=== PATIENT | female | born 1980 | race Caucasian/White ===

== ENCOUNTER 2021-04-03 17:03 | Outpatient (CLI) | payer OTHER, SELFPAY ==
[2021-04-03 15:26] LABS: FREE T4 0.93 ng/dL (0.76-1.46)
== END 2021-04-03 17:04 | disposition home or self-care (01) ==
LOC: LBO 17:17
PROVIDERS: Visit Provider Nurse Practitioner Family
DX: E03.9 Hypothyroidism, unspecified (principal)
CPT/HCPCS: 36415; 84439; 84443

== ENCOUNTER 2022-04-08 17:07 | Outpatient (REF) | payer SELFPAY ==
[2022-04-08 20:05] LABS: ALT 21 U/L (14-59); AST 22 U/L (15-37); Albumin 3.7 g/dL (3.4-5.0); Alkaline Phosphatase 54 U/L (46-116); Anion Gap 8.1 mmol/L (3-11); BUN 17 mg/dL (7-18); Bilirubin, Total 0.3 mg/dL (0.2-1.0); CO2 26.9 mmol/L (21.0-32.0); CREATININE 0.8 mg/dL (0.55-1.02); Calcium 8.8 mg/dL (8.5-10.1); Chloride 103 mmol/L (98-107); Estimated GFR 96.06 (mL/min/1.73m2); FREE T4 1.02 ng/dL (0.76-1.46); Glucose 94 mg/dL (74-106); Potassium 3.9 mmol/L (3.5-5.1); Sodium 138 mmol/L (136-145); Total Protein 7.5 g/dL (6.4-8.2)
== END 2022-04-08 17:08 | disposition home or self-care (01) ==
LOC: NCHCN 17:07
PROVIDERS: Visit Provider Nurse Practitioner Family
DX: R63.5 Abnormal weight gain (principal); E03.9 Hypothyroidism, unspecified; F41.8 Other specified anxiety disorders
CPT/HCPCS: 80053; 84439; 84443

== ENCOUNTER 2022-08-03 15:27 | Outpatient (REF) | payer SELFPAY ==
[2022-08-03 19:23] LABS: C-Reactive Protein 0.41 mg/dL (0.0-0.3)
[2022-08-04 17:27] LABS: Rheumatoid Factor <8.6 IU/mL (<12.0)
[2022-08-05 13:58] LABS: ANA Interpretation Positive (Negative)
== END 2022-08-03 15:28 | disposition home or self-care (01) ==
LOC: NCHCN 15:27
PROVIDERS: PCP Nurse Practitioner Family; Visit Provider Nurse Practitioner Family
DX: M35.7 Hypermobility syndrome (principal); M25.59 Pain in other specified joint
CPT/HCPCS: 86038; 86140; 86431

== ENCOUNTER 2025-05-25 18:54 | Emergency (ER) | payer OTHER, SELFPAY ==
[2025-05-25 18:57] VITALS: BP 127/86; PULSE 69; RESP 14; TEMP 36.8; O2SAT 100
[2025-05-25 19:04] VITALS: BP 127/86; PULSE 67; RESP 13; O2SAT 100
--- NOTE | 2025-05-25 19:12 | W.ED.GENAD ---
Discharge Plan Disposition Patient Disposition: Home Condition: Stable Discharge Details Clinical Impression: Knee pain, right, Locking of right knee Primary Care Provider: Hortensia Bridges ED Provider: Richard Flores Home Meds and New Rx's Prescriptions: Continued Vivitrol 380 mg suspension,extended rel recon 380 mg IM .28 days hydroxyzine HCl 25 mg tablet 25 mg PO Q8H PRN Patient Comments: TAKE ONE TABLET BY MOUTH AT BEDTIME. sertraline 100 mg tablet 100 mg PO DAILY Patient Comments: TAKE 2 TABLETS BY MOUTH EVERY DAY Discharge Instructions Additional Instructions: Follow-up with your primary care provider if pain continues as you will likely need an MRI if the pain is not improving. You can take 1000 mg of acetaminophen and 600 mg of ibuprofen every 6 hours as needed. If you feel more ill or have new symptoms such as high fevers return to the emergency department for reevaluation. Stand Alone Forms: Portal Information HPI General Mode of arrival: EMS. Date/Time Provider Initiated Documentation: 05/25/25 19:06. Limitations to Documentation: no limitations. Information obtained by: patient. History of Present Illness 44 year old F presents to the emergency department with the chief complaint of right knee pain, described as moderate, Quality is described as aching, and it has been constant. No relieving factors improve symptom(s), No exacerbating factors reported . Patient notes no other symptoms.. Related Data Home Medications Medication Instructions Recorded Confirmed hydroxyzine HCl 25 mg tablet 25 mg PO Q8H PRN 05/25/25 05/25/25 naltrexone microspheres 380 mg 380 mg IM .28 days 05/25/25 05/25/25 intramuscular suspension,extended release (Vivitrol) sertraline 100 mg tablet 100 mg PO DAILY 05/25/25 05/25/25 Allergies Allergy/AdvReac Type Severity Reaction Status Date / Time No Known Allergies Allergy Unverified 05/25/25 19:05 General Stated Complaint: Orthopedic LUIZ: 4 Review of Systems All systems reviewed & are unremarkable except as noted in HPI and below Constitutional Constitutional: Denies chills, Denies fever(s) and Denies weakness ENT Ears, Nose, Mouth, and Throat: Denies change in voice Cardiovascular Cardiovascular: Denies chest pain and Denies dyspnea Respiratory Respiratory: Denies cough and Denies dyspnea Gastrointestinal Gastrointestinal: Denies abdominal pain, Denies nausea and Denies vomiting Musculoskeletal Musculoskeletal: Reports arthralgias Neurologic Neurologic: Denies weakness Exam Const General: no acute distress Orientation: alert [facility] Head: normal to inspection Ears: external ears normal General nose exam: external nose normal Mouth: moist mucous membranes Eyes General: appearance normal, both eyes and all related structures Neck Neck: normal visual inspection Resp Effort & Inspection: normal respiratory effort and able to speak in complete sentences Cardio Rate: regular rate Skin General skin exam: no rashes or lesions noted Neuro General: patient alert and patient oriented x3 Extrem General: abnormal ROM and capillary refill normal Psych Mental Status: mental status grossly normal Course Vital Signs Vital signs: Vital Signs Temperature 36.8 C 05/25/25 18:57 Pulse 69 05/25/25 18:57 Respiratory Rate 14 05/25/25 18:57 Blood Pressure 127/86 05/25/25 18:57 Pulse Oximetry 100 05/25/25 18:57 Temperature 36.8 C 05/25/25 18:57 Temperature Source Oral 05/25/25 18:57 Pulse 69 05/25/25 18:57 Respiratory Rate 14 05/25/25 18:57 Blood Pressure 127/86 05/25/25 18:57 Blood Pressure Position Sitting 05/25/25 18:57 Pulse Oximetry 100 05/25/25 18:57 Oxygen Delivery Method Room Air 05/25/25 18:57 Oxygen Flow Rate 0 05/25/25 18:57 Pain Level 10 05/25/25 19:08 Medical Decision Making 44-year-old female who 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 She says that she has had knee dislocations in the past. Denies any trauma, no fevers or chills. She is unable to move the knee at all without causing significant pain. There is no visible or palpable deformities of the knee. She has no tenderness or pain elsewhere in the leg. She has intact distal sensation and pulses. There is no warmth or erythema of the knee. I suspect this is possibly a meniscus versus ligamentous cause for her pain, will obtain x-rays to evaluate for fracture/dislocation and reassess. She is no findings on exam or history to suggest septic joint. X-ray negative on my read, patient still unable to move the knee due to pain. She gave verbal consent to inject lidocaine into the knee to see if this helps with her pain and will allow her to start moving the knee No significant change to lidocaine, she states that this has happened in the past and usually muscle relaxer helps. Will trial diazepam. Patient now moving her leg well. She is able to lift her leg straight up off the bed and maintains a straight leg so I doubt quadriceps tendon rupture. I suspect meniscus versus ligamentous injury. Will provide a knee immobilizer and also have her follow-up with PCP for an mri if pain continues, return precautions given. Differential Diagnosis Differential Diagnosis: muscle spasm, strain, dislocation PFSH All Active Problems (Updated 05/25/25 @ 20:40 by Richard Flores MD) Locking of right knee (Acute) Knee pain, right (Acute) Encounter for screening laboratory testing for COVID-19 virus (Acute) No-show for appointment (Acute) Encounter for screening for other viral diseases (Acute) Social History Smoking/Tobacco Use Status: Never Smoking risk assessment performed?: Yes Alcohol Intake: former Substance use type: does not use
[2025-05-25] MEDS: Ketorolac 15 MG/ML VIAL IVP ×2 (19:18→20:13)
--- NOTE | 2025-05-25 19:33 | DI.RAD_ITS ---
Exam(s) XR KNEE RT 2V AP,LAT EXAM: XR KNEE RT 2V AP,LAT CLINICAL HISTORY: pain, limited rom. TECHNIQUE: 2D digital imaging was performed of the right knee. Two views obtained. AP and lateral views were obtained. COMPARISON: No exams were available for comparison FINDINGS: The examination is limited by patient positioning and body habitus. The distal femur and tibial plateau are not well visualized on the AP view. BONES: No acute fracture is present. No bony destructive lesion is seen. JOINTS: Mild degenerative changes are seen in the knee. No joint effusion is seen. SOFT TISSUE: Normal. IMPRESSION: 1. Examination limited by patient body habitus. The distal femur and tibial plateau cannot be completely evaluated based on these images. 2. Within the limits of the examination, no acute fracture or dislocation is identified. 3. If there is continued clinical concern, a complete knee series should be obtained. DATA REPOSITORY: RADIATION DOSE DELIVERED:
[2025-05-25] MEDS: diazePAM 10 MG/2 ML SYR 5 MG IVP (20:12)
[2025-05-25] MEDS: Lidocaine 2% Pres-Free W/EPI 1/200,000 20 ML VIAL (20:21)
[2025-05-25 20:30] VITALS: PULSE 66; PULSE 67; RESP 14; O2SAT 96
== END 2025-05-25 21:16 | disposition home or self-care (01) ==
PROVIDERS: Emergency Provider Emergency Medicine; PCP Nurse Practitioner Family
DX: M25.561 Pain in right knee (principal)
CPT/HCPCS: 99283; 99284; 96374; 96375; 96376; 73560; J1885; J2004; J3360

== ENCOUNTER → 2025-07-17 14:21 | Outpatient (CLI) | payer OTHER, SELFPAY ==
--- NOTE | 2025-07-17 | DI.MRI_ITS ---
Exam(s) MR LOWER JOINT RT WO EXAM: MR LOWER JOINT RT WO CLINICAL HISTORY: M23.91 Unspecified internal derangement of RT knee TECHNIQUE: Multiplanar multisequence MRI of the knee was performed. 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 Is no debris nor loose intra-articular bodies within this Castillo cyst and this septated Castillo's cyst does not appear ruptured. MARROW:There is no evidence of fracture, bone contusion, nor osteochondral defects.. There are no significant osseous lesions. PATELLOFEMORAL COMPARTMENT: The quadriceps tendon is intact. The patellar ligament is intact. There is an element of lateral positioning of the patella, with approximately 1 cm lateral shift, similar to the opposite side. There is no prominent thinning of the retropatellar cartilage nor osteochondral defects at this level nor intraosseous edema within the patella. There is no intraosseous signal which would suggest recent patellar dislocation and there are no patellar retinacular tears nor signal abnormality within the vastus medialis muscle. CRUCIATE LIGAMENTS: The anterior cruciate ligament is intact.The posterior cruciate ligament is intact. MEDIAL COMPARTMENT/MEDIAL MENISCUS: There are no tears of the medial meniscus evident.. There is, however, moderate thinning of the articular cartilage over the main weight-bearing surface of the medial femoral condyle and small marginal osteophytes off the inner and outer aspects of the medial condyle. There is no subjacent edema in the medial tibial plateau. MEDIAL COLLATERAL LIGAMENT: Intact LATERAL COMPARTMENT/LATERAL MENISCUS: There is significant attenuation-chronic tearing of the anterior horn and part of the body of the lateral meniscus versus previous instrumentation at this level or combination of both. The posterior horn of the lateral meniscus appears intact.There is also significant articular cartilage thinning over the main weight-bearing surface of the lateral condyle. There is no obvious subarticular edema in the lateral compartment within the lateral condyle nor within the subjacent lateral tibial plateau. ILIOTIBIAL BAND: Intact LATERAL COLLATERAL LIGAMENT COMPLEX: The fibular collateral ligament is intact. The biceps femoris tendon is intact.Popliteus muscle and tendon are intact. IMPRESSION: 1. There is prominent attenuation and tearing of the anterior horn and part of the body of the lateral meniscus with significant chondromalacia/articular cartilage thinning over the main weight-bearing surface of the lateral femoral condyle. The posterior horn of the lateral meniscus appears intact. There are no tears of the medial meniscus evident although there are moderate osteoarthritic cartilage changes in the medial compartment evident 2. There are no cruciate nor collateral ligament tears and the iliotibial band appears intact. 3. There is 1 cm lateral positioning of the patella within the intercondylar notch which is similar to the opposite side. However, there is no intraosseous signal to suggest recent traumatic patellar dislocation and there is no significant thinning of the retropatellar cartilage nor abnormal intraosseous signal within the patella itself. There also no patellar retinacular tears evident. 4. There is a small-moderate size joint effusion and there is a septated Castillo cyst in the medial popliteal fossa which measures 8 cm craniocaudal length and appears nonruptured. It does not appear to contain debris nor loose intra- articular bodies. Other findings as above. DATA REPOSITORY:
--- NOTE | 2025-07-17 | DI.MRI_ITS ---
Exam(s) MR LOWER JOINT LT WO EXAM: MR LOWER JOINT LT WO CLINICAL HISTORY: INTERNAL DERANGEMENT LT KNEE, M23.92 TECHNIQUE: Multiplanar multisequence MRI of the knee was performed. COMPARISON: MR MR LOWER JOINT RT WO from 07/17/2025 FINDINGS: EFFUSION: There is a moderate size left knee joint effusion. There is no Castillo cyst in the medial popliteal fossa. MARROW:There is no evidence of fracture, bone contusion, nor osteochondral defects.. There are no significant osseous lesions. PATELLOFEMORAL COMPARTMENT: The quadriceps tendon is intact. The patellar ligament is intact. There is no significant thinning of the retropatellar cartilage. No evidence of fissure nor significant chondral defect in this compartment and. No osteochondral defect at this level.There is no intraosseous signal to suggest recent patellar dislocation. There are no patellar retinacular tears. CRUCIATE LIGAMENTS: The anterior cruciate ligament is intact.The posterior cruciate ligament is intact. MEDIAL COMPARTMENT/MEDIAL MENISCUS: There are no tears of the medial meniscus evident.. There are no chondral defects, osteochondral defects, subarticular marrow edema, nor osteophytes evident. MEDIAL COLLATERAL LIGAMENT: Intact LATERAL COMPARTMENT/LATERAL MENISCUS: There is significant tear of the from body and anterior horn of the lateral meniscus. The posterior horn and meniscal appear intact.There is significant cartilage loss in the outer half of the articular surface of the lateral femoral condyle and extending anteriorly. This is overlying the area of meniscal tearing. There is no obvious subarticular edema in the lateral compartment and there are no prominent osteophytes. ILIOTIBIAL BAND: Intact LATERAL COLLATERAL LIGAMENT COMPLEX: The fibular collateral ligament is intact. The biceps femoris tendon is intact.Popliteus muscle and tendon are intact. IMPRESSION: 1. There is prominent tearing of the body and anterior horn of the lateral meniscus and there is significant chondromalacia/cartilage thinning over the main weight-bearing surface overlying this meniscal tear, with the articular cartilage thinning being mostly clean find to the outer half of the lateral femoral condyle. The posterior horn of the lateral meniscus appears intact. There are no tears of the medial meniscus nor significant degenerative change in the medial compartment 2. There are no cruciate nor collateral ligament tears and the iliotibial band also appears unremarkable. 3. Moderate size joint effusion evident. There are no obvious loose intra- articular bodies seen. 4. DATA REPOSITORY:
== END ==
LOC: DI 14:21
PROVIDERS: PCP Nurse Practitioner Family; Visit Provider Nurse Practitioner Family
DX: M23.91 Unspecified internal derangement of right knee (principal)
CPT/HCPCS: 73721